=== PATIENT | male | born 2005 | race Caucasian/White ===

== ENCOUNTER 2024-09-03 20:34 | Emergency (ER) | payer OTHER ==
[2024-09-03] MEDS ORDERED: Acetaminophen 500 MG TAB ONE (21:49)
== END 2024-09-03 22:51 | disposition home or self-care (01) ==
LOC: CSHERS 20:34
DX: S80.11XA Contusion of right lower leg, initial encounter (principal); V49.9XXA Car occupant (driver) (passenger) injured in unspecified traffic accident, initial encounter
CPT/HCPCS: 99283